=== PATIENT | female | born 1975 | race Caucasian/White ===

== ENCOUNTER 2018-12-07 12:40 | Day surgery (SDC) | payer OTHER ==
[2018-12-07] MEDS ORDERED: MIDAZOLAM 1 MG/ML 2 ML INJ ×3 (15:21→15:22)
[2018-12-07] MEDS ORDERED: FENTAnyl 50 MCG/ML VIAL (15:21)
== END 2018-12-07 17:18 | disposition home or self-care (01) ==
LOC: GIL 12:40
DX: R19.5 Other fecal abnormalities (principal); K29.30 Chronic superficial gastritis without bleeding; K64.8 Other hemorrhoids
CPT/HCPCS: 43239; 88305; 88312